=== PATIENT | male | born 1980 | race African-American/Black ===

== ENCOUNTER 2016-10-16 21:48 | Emergency (ER) | payer MEDICARE ==
[~2016-10-16 21:48] MED LIST: ALBENZA200 MG PO; IBUPROFEN800 MG PO; KEFLEX500 M1 PO; KETOCONAZOLE15 GM; MULTI VITAMIN1 EACH; MULTI VITAMIN1 EACH PO; PREDNISONE PO
[2016-10-22] MEDS ORDERED: AMOXICILLIN (21:10)
== END 2016-10-16 22:13 | disposition home or self-care (01) ==
LOC: SED 21:48
DX: J02.9 Acute pharyngitis, unspecified (principal); J45.909 Unspecified asthma, uncomplicated; Z79.899 Other long term (current) drug therapy
CPT/HCPCS: 99282

== ENCOUNTER 2016-10-19 23:25 | Emergency (ER) | payer MEDICARE ==
[2016-10-22] MEDS ORDERED: AMOXICILLIN (21:10)
[2016-10-23 22:53] LABS: CHLAMYDIA TRACH Not Detected (Not Detected); N GONOR Not Detected (Not Detected)
== END 2016-10-20 01:45 | disposition home or self-care (01) ==
LOC: CFTX 23:25
PROVIDERS: Physician Assistant Medical
DX: J02.9 Acute pharyngitis, unspecified (principal); J45.909 Unspecified asthma, uncomplicated; F17.210 Nicotine dependence, cigarettes, uncomplicated
CPT/HCPCS: 87491; 87591; 96372; 99283; J0561

== ENCOUNTER 2016-10-22 23:29 | Emergency (ER) | payer MEDICARE ==
[~2016-10-22 23:29] MED LIST changes: +AMOXICILLIN
== END 2016-10-22 23:51 | disposition home or self-care (01) ==
LOC: SED 23:29
DX: J02.9 Acute pharyngitis, unspecified (principal); B37.9 Candidiasis, unspecified; J45.909 Unspecified asthma, uncomplicated; F17.210 Nicotine dependence, cigarettes, uncomplicated; Z79.2 Long term (current) use of antibiotics
CPT/HCPCS: 99282

== ENCOUNTER 2017-01-13 23:26 | Emergency (ER) | payer MEDICARE ==
[2017-01-13] MEDS ORDERED: IRON45 MG (23:34)
== END 2017-01-14 00:16 | disposition home or self-care (01) ==
LOC: SED 23:26
DX: R21 Rash and other nonspecific skin eruption (principal); J45.909 Unspecified asthma, uncomplicated; F17.200 Nicotine dependence, unspecified, uncomplicated
CPT/HCPCS: 99282